=== PATIENT | female | born 1985 | race Caucasian/White ===

== ENCOUNTER 2016-09-12 00:42 | Emergency (ER) | payer OTHER ==
--- NOTE | 2016-09-12 01:06 | PDOC ---
History of Present Illness - General Chief Complaint: Pain, Acute Stated Complaint: ABDOMINAL PAIN Time Seen by Provider: 09/12/16 00:46 History Source: Patient Exam Limitations: No Limitations - History of Present Illness Initial Comments: 09/12/16 03:19 This is an 31-year-old female who comes in complaining of acute onset of upper abdominal pain post eating a chipotle earlier today. Patient said pain radiates to the epigastric and substernal area as well as to the back. Patient has some nausea but otherwise denies any vomiting or diarrhea. Patient is otherwise healthy and denies history of similar pain in the past. Patient has a family history of gallstones but denies any gallstones herself. Patient denies any fevers, vomiting or diarrhea. PAST MEDICAL HISTORY: no significant history PAST SURGICAL HISTORY: no significant history FAMILY HISTORY: no pertinant history SOCIAL HISTORY: Pt lives with family and is employed. MEDICATIONS: reviewed ALLERGIES: As per nursing notes Review of Systems General: No fevers or chills, no weakness, no weight loss HEENT: No change in vision. No sore throat,. No ear pain CardioVascular: No chest pain or shortness of breath Respiratory:No cough, or wheezing. Gastrointestinal: + nausea, no vomitting, diarrhea or constipation, No rectal bleeding, positive abdominal pain Genitourinary: No dysuria, hematuria, or frequency Musculoskeletal: No joint or muscle pain or swelling Neurologic: No headache, vertigo, dizziness or loss of consciousness Psychiatric: nor depression Skin: No rashes or easy bruising Endocrine: no increased thirst or abnormal weight change Allergic: no skin or latex allergy All other systems reviewed and normal Exam: General: Well-nourished well-developed individual, moderate distress HEENT: Throat: Normal, tonsils normal, no erythema or exudate Neck: Supple, no meningeal signs, no lymphadenopathy Eyes::Pupils equal reactive and round, extraocular motion intact Chest: Nontender to palpation Cardiac: S1-S2 normal, regular rate and rhythm, no murmurs rubs or gallops Respiratory: Lungs clear to auscultation bilateral Abdomen: Soft, nondistended, normal bowel sounds, tender to palpation epigastric area no guarding or rebound Extremities: Warm, dry, no cyanosis, clubbing, or edema Skin: No rashes Neuro: Alert and oriented x3, nonfocal exam, grossly intact, normal gait Psych: Normal mood and affect 3:20 patient is feeling better, patient's ultrasound shows no gallstones or evidence of acute pancreatitis, there is some calcified granulomas versus pneumobilia in the right lobe of the liver. Otherwise negative ultrasound. Assessment and plan: This is a 31-year-old female who comes in complaining of abdominal pain post eating at [facility]. Patient had a workup was negative for any acute pathology. Patient had a normal white count and chemistries were normal with the exception of a mild elevation of her liver enzymes. Otherwise There is some calcification in her liver. Patient was told that the calcification given a copy of her CAT scan report told to take it to her primary care doctor and follow it up. Patient felt much better here in the emergency room after some fluids and pain medication. Patient discharged home will follow-up with her primary care doctor Past History - Past Medical History Allergies/Adverse Reactions: Allergies Allergy/AdvReac Type Severity Reaction Status Date / Time amoxicillin trihydrate Allergy Verified 03/29/12 01:21 [From Augmentin] potassium clavulanate Allergy Verified 03/29/12 01:21 [From Augmentin] Home Medications: Ambulatory Orders No Home Medications 0 dose .ROUTE UTDICT 02/22/13 Other medical history: DENIES - Immunization History Td Vaccination: Yes Immunization Up to Date: Yes - Psycho/Social/Smoking Cessation Hx Anxiety: No Suicidal Ideation: No Smoking Status: No Smoking History: Never smoked Number of Cigarettes Smoked Daily: 0 Cigars Per Day: 0 *Physical Exam - Vital Signs Last Vital Signs Temp Pulse Resp BP Pulse Ox 98.6 F 99 H 16 134/70 100 09/12/16 00:44 09/12/16 00:44 09/12/16 00:44 09/12/16 00:44 09/12/16 00:44 ED Treatment Course - LABORATORY CBC & Chemistry Diagram: 09/12/16 01:35 09/12/16 01:35 *DC/Admit/Observation/Transfer Diagnosis at time of Disposition: Abdominal pain Qualifiers: Abdominal location: upper abdomen, unspecified Qualified Code(s): R10.10 - Upper abdominal pain, unspecified - Discharge Dispostion Disposition: HOME Condition at time of disposition: Stable - Patient Instructions Printed Discharge Instructions: DI for Abdominal Pain-Adult Additional Instructions: Tylenol or Motrin as needed for pain. Take a copy of your CAT scan report to your doctor and follow up with your doctor in the calcified granulomata and elevated liver enzymes. Return to the emergency department immediately with ANY new, persistent or worsening symptoms. Continue any medications as previously prescribed by your physician. You should follow up with your primary doctor as soon as possible regarding today's emergency department visit. . Please make sure your doctor reviews the results of your emergency evaluation. Thank you for coming to the Emergency Department today for your care. It was a pleasure to see you today. Please note that your evaluation is INCOMPLETE until you follow-up with your doctor.
[2016-09-12] MEDS ORDERED: ONDANSETRON 4 MG/2 ML VIAL IVPB ONE (01:08)
[2016-09-12] MEDS ORDERED: morphine CARPU-JECT 2 MG/1 ML DISP.SYRIN IVPUSH ONE (01:08)
[2016-09-12] MEDS ORDERED: SODIUM CHLORIDE 1,000 ML IV ONE (01:08)
[2016-09-12] MEDS ORDERED: KETOROLAC TROMETHAMINE 30 MG/1 ML VIAL IVPUSH ONE (01:08)
[2016-09-12 01:13] VITALS: BP 134/70; PULSE 99; TEMP 98.6; BMI 21.9
[2016-09-12] MEDS ORDERED: morphine CARPU-JECT 4 MG/1 ML DISP.SYRIN IVPUSH ONE (01:17)
[2016-09-12] MEDS ORDERED: KETOROLAC TROMETHAMINE 30 MG/1 ML VIAL ONE (01:27)
[2016-09-12] MEDS ORDERED: morphine CARPU-JECT 2 MG/1 ML DISP.SYRIN ONE (01:27)
[2016-09-12] MEDS ORDERED: ONDANSETRON 4 MG/2 ML VIAL ONE (01:28)
[2016-09-12 02:09] LABS: BASOPHIL 0.7 % (0-2.0); EOSINOPHIL 1.6 % (0-4.5); MCH 31.4 pg (25.7-33.7); MCHC 34.4 g/dl (32.0-36.0); MEAN CELL VOLUME 91.2 fl (80-96); MEAN PLT VOLUME 8.6 fl (7.5-11.1); NEUTROPHILS 80.3 % (42.8-82.8); PLATELET COUNT 244 K/MM3 (134-434); WHITE BLOOD COUNT 9.8 K/mm3 (4.0-10.0)
[2016-09-12 02:20] LABS: URINE APPEARANCE CLOUDY; URINE BILIRUBIN NEGATIVE (NEGATIVE); URINE BLOOD NEGATIVE (NEGATIVE); URINE COLOR LTYELLOW; URINE GLUCOSE (UA) NEGATIVE (NEGATIVE); URINE KETONE NEGATIVE (NEGATIVE); URINE NITRITE NEGATIVE (NEGATIVE); URINE PROTEIN NEGATIVE (NEGATIVE); URINE UROBILINOGEN NEGATIVE E.U./dl (0.2-1.0)
[2016-09-12 02:22] LABS: URINE LEUK ESTERASE 1+ (NEGATIVE)
[2016-09-12 02:47] LABS: ALBUMIN 3.6 g/dl (3.4-5.0); ANION GAP 14 (8-16); CALCIUM 8.5 mg/dL (8.5-10.1); CO2 24 mmol/L (21-32); COCKROFT - GAULT 86.7425; CREATININE 0.8 mg/dL (0.55-1.02); GLUCOSE,RANDOM 83 mg/dL (74-106); SGOT/AST 140 U/L (15-37); SGPT/ALT 82 U/L (12-78)
[2016-09-12 02:48] LABS: ALK PHOS 111 U/L (45-117); BILIRUBIN,TOTAL 0.2 mg/dL (0.2-1.0); TOT PROT 7.3 g/dl (6.4-8.2)
[2016-09-12 03:11] LABS: URINE BACTERIA MANY /hpf (NONE SEEN); URINE RBC 3 /hpf (0-3); URINE WBC 8 /hpf (3-5)
--- NOTE | 2016-09-13 16:16 | EKG ---
Test Reason : Blood Pressure : / mmHG Vent. Rate : 088 BPM Atrial Rate : 088 BPM P-R Int : 152 ms QRS Dur : 080 ms QT Int : 352 ms P-R-T Axes : 083 072 073 degrees QTc Int : 425 ms NORMAL SINUS RHYTHM POSSIBLE LEFT ATRIAL ENLARGEMENT minimal RVCD NO PREVIOUS ECGS AVAILABLE Confirmed by MD JUANITA, TUNDE ([id number]) on 09/13/2016 4:16:22 PM Referred By: BRITTNEY STEIN Confirmed By:TUNDE GRANT MD
== END 2016-09-12 03:32 | disposition home or self-care (01) ==
LOC: FER 00:42
PROC: 3E0333Z Introduction of Anti-inflammatory into Peripheral Vein, Percutaneous Approach (ICD-10-PCS; principal; 2016-09-12)
PROC: 3E033NZ Introduction of Analgesics, Hypnotics, Sedatives into Peripheral Vein, Percutaneous Approach (ICD-10-PCS; 2016-09-12)
PROC: 3E033GC Introduction of Other Therapeutic Substance into Peripheral Vein, Percutaneous Approach (ICD-10-PCS; 2016-09-12)
PROC: 3E0337Z Introduction of Electrolytic and Water Balance Substance into Peripheral Vein, Percutaneous Approach (ICD-10-PCS; 2016-09-12)
DX: R10.10 Upper abdominal pain, unspecified (principal)
CPT/HCPCS: 36415; 76705-TC; 80053; 81003; 81015; 83690; 84703; 85025; 93005; 96361; 96374; 96375; 99283-25

== ENCOUNTER 2019-05-01 14:49 | Emergency (ER) | payer BC, OTHER ==
[2019-05-01 15:03] VITALS: BP 105/42; PULSE 62; TEMP 98; BMI 21.2
--- NOTE | 2019-05-01 15:30 | PDOC ---
History of Present Illness - General Chief Complaint: Laceration Stated Complaint: INJURY/FINGER Time Seen by Provider: 05/01/19 15:02 History Source: Patient Exam Limitations: No Limitations - History of Present Illness Initial Comments: 05/01/19 15:25 Patient is a 34-year-old female who presents to the ED with a laceration to the webspace between her thumb and index finger after using a knife to try and open an apple cider vinegar bottle. She states her last tetanus booster was in 2015. She denies any numbness or tingling. She has no difficulty moving her fingers. Past History - Past Medical History Allergies/Adverse Reactions: Allergies Allergy/AdvReac Type Severity Reaction Status Date / Time amoxicillin trihydrate Allergy Verified 05/01/19 15:02 [From Augmentin] potassium clavulanate Allergy Verified 05/01/19 15:02 [From Augmentin] Home Medications: Ambulatory Orders No Home Medications 0 dose .ROUTE UTDICT 02/22/13 COPD: No - Immunization History Td Vaccination: Yes Immunization Up to Date: Yes (2015) - Psycho Social/Smoking Cessation Hx Smoking Status: No Smoking History: Never smoked Number of Cigarettes Smoked Daily: 0 Cigars Per Day: 0 Review of Systems - Review of Systems Comments:: 05/01/19 15:26 - Review of Systems Able to Perform ROS?: Yes Constitutional: No: Fever, Chills Respiratory: No: Cough, Shortness of Breath, Wheezing Cardiac (ROS): No: Chest Pain, Palpitations ABD/GI: No: Nausea, Vomiting, Abdominal Pain, Diarrhea Musculoskeletal: No: Muscle Pain, Back Pain, Joint Pain, Muscle Weakness, Neck Pain Integumentary: No: Lesions, Rash; Positive hand laceration Neurological: No: Numbness, Tingling, Weakness *Physical Exam - Vital Signs Last Vital Signs Temp Pulse Resp BP Pulse Ox 98 F 62 18 105/42 L 99 05/01/19 14:59 05/01/19 14:59 05/01/19 14:59 05/01/19 14:59 05/01/19 14:59 - Physical Exam 05/01/19 15:27 - Physical Exam General Appearance: Nourished, Appropriately Dressed, No Distress Respiratory/Chest: Lungs Clear, Normal Breath Sounds. No Respiratory Distress, No Accessory Muscle Use Cardiovascular: Regular Rhythm, Regular Rate, S1, S2 Musculoskeletal: Normal Inspection. No Decreased Range of Motion Extremity: Normal Capillary Refill, Normal Inspection Integumentary: Normal Color, Dry. No Rash; L hand 1 cm laceration to the webspace between the thumb and index finger. This laceration is superficial. There is minimal active bleeding. No evidence of foreign body. Neurologic: Fully Oriented, Alert, Normal Mood/Affect, Normal Response, No sensory or motor deficits to the left upper extremity. 05/01/19 15:35 Procedures - Laceration/Wound Repair Left Hand Wound Length: to 2.5 cm Wound Explored: clean Wound's Depth, Shape: superficial Irrigated w/ Saline: Yes Anesthesia: 1% Lidocaine Amount of Anesthetic (ccs): 1 Wound Repaired With: Sutures Suture Size/Type: 5:0 (Nylon) Number of Sutures: 2 Layer Closure: No Sterile Dressing Applied: Yes Splint Applied: No Medical Decision Making - Medical Decision Making 05/01/19 15:32 The patient had 2 sutures placed under sterile condition to the laceration in the webspace of the thumb and index finger. She tolerated the procedure well. A sterile dressing was applied. She was advised to clean the wound daily with warm water and soap, allowed to dry for roughly 30 minutes and then apply bandage if away from home. She can keep the wound uncovered if she is home. She should have the sutures removed in 5 to 7 days by her primary doctor, urgent care or she can return to the ED. She understands and agrees with treatment and plan and she is stable for discharge. Discharge - Discharge Information Problems reviewed: Yes Clinical Impression/Diagnosis: Laceration of hand Qualifiers: Encounter type: initial encounter Foreign body presence: without foreign body Laterality: left Qualified Code(s): S61.412A - Laceration without foreign body of left hand, initial encounter Condition: Stable Disposition: HOME - Follow up/Referral - Patient Discharge Instructions Patient Printed Discharge Instructions: DI for Laceration Repair Additional Instructions: Keep wound clean and dry. You can start to wash the wound tomorrow with warm water and soap once daily. Allowed to dry for roughly 30 minutes before covering with a Band-Aid. You can keep the wound uncovered while at home but you should cover it if away from home. You should have the sutures removed in 5 to 7 days by your primary doctor, an urgent care center or you can return to the ED. - Post Discharge Activity Work/Back to School Note: Back to Work
== END 2019-05-01 15:47 | disposition home or self-care (01) ==
LOC: JERFT 14:49
PROC: 0HQGXZZ Repair Left Hand Skin, External Approach (ICD-10-PCS; principal; 2019-05-01)
DX: S61.412A Laceration without foreign body of left hand, initial encounter (principal); W26.0XXA Contact with knife, initial encounter; Y93.G9 Activity, other involving cooking and grilling; Y92.018 Other place in single-family (private) house as the place of occurrence of the external cause; Y99.8 Other external cause status; Z88.8 Allergy status to other drugs, medicaments and biological substances
CPT/HCPCS: 99281-25

== ENCOUNTER 2021-04-08 14:50 | Emergency (ER) | payer SELFPAY ==
[2021-04-08 15:11] VITALS: BP 107/56; PULSE 105; TEMP 98.5; BMI 19.8
== END 2021-04-08 16:24 | disposition home or self-care (01) ==
LOC: FER 14:50
DX: J11.1 Influenza due to unidentified influenza virus with other respiratory manifestations (principal)
CPT/HCPCS: 36415; 84702; 87804; 87807; 99283-25; C9803; U0003; U0005